=== PATIENT | female | born 1995 | race American Indian/Alaskan Native ===

== ENCOUNTER 2021-09-13 12:49 | Emergency (ER) | payer SELFPAY ==
[2021-09-13 13:04] VITALS: BP 105/66
--- NOTE | 2021-09-13 13:43 | Emergency Department Report ---
- General Chief complaint: Extremity Injury, Lower Stated complaint: FOOT PAIN Time Seen by Provider: 09/13/21 13:31 Source: patient Mode of arrival: Ambulatory Limitations: No Limitations - History of Present Illness Initial comments: Ms. Boland is a 25-year-old female that comes to the emergency room with foot pain. She thinks is related to the shoes that she is wearing to work. On exam she has a plantars wart to the bottom of her foot -: Gradual, days(s) Tetanus Up to Date: yes Severity scale (0 -10): 3 Quality: stabbing Consistency: constant Improves with: immobilization Worsens with: movement Context: none Associated symptoms: denies other symptoms - Related Data Previous Rx's Medication Instructions Recorded Last Taken Type Salicylic Acid [Compound W] 1 each TP DAILY #30 patch 09/13/21 Unknown Rx Allergies Allergy/AdvReac Type Severity Reaction Status Date / Time No Known Allergies Allergy Verified 09/13/21 13:04 Abscess Boil HPI - HPI Chief Complaint: Extremity Injury, Lower Stated Complaint: FOOT PAIN Time Seen by Provider: 09/13/21 13:31 Home Medications: Previous Rx's Medication Instructions Recorded Last Taken Type Salicylic Acid [Compound W] 1 each TP DAILY #30 patch 09/13/21 Unknown Rx Allergies/Adverse Reactions: Allergies Allergy/AdvReac Type Severity Reaction Status Date / Time No Known Allergies Allergy Verified 09/13/21 13:04 ED Review of Systems ROS: Stated complaint: FOOT PAIN Other details as noted in HPI Comment: All other systems reviewed and negative ED Past Medical Hx - Past Medical History Previous Medical History?: Yes Hx Congestive Heart Failure: Yes - Surgical History Past Surgical History?: No - Family History Family history: no significant - Social History Smoking Status: Never Smoker Substance Use Type: None - Medications Home Medications: Home Medications Medication Instructions Recorded Confirmed Last Taken Type Salicylic Acid [Compound W] 1 each TP DAILY #30 patch 09/13/21 Unknown Rx ED Physical Exam - General Limitations: No Limitations General appearance: alert, in no apparent distress - Head Head exam: Present: atraumatic, normocephalic - Eye Eye exam: Present: normal appearance - ENT ENT exam: Present: mucous membranes moist - Neck Neck exam: Present: normal inspection - Respiratory Respiratory exam: Present: normal lung sounds bilaterally. Absent: respiratory distress - Cardiovascular Cardiovascular Exam: Present: regular rate, normal rhythm. Absent: systolic murmur, diastolic murmur, rubs, gallop - GI/Abdominal GI/Abdominal exam: Present: soft, normal bowel sounds - Extremities Exam Extremities exam: Present: normal inspection - Back Exam Back exam: Present: normal inspection - Neurological Exam Neurological exam: Present: alert, oriented X3 - Psychiatric Psychiatric exam: Present: normal affect, normal mood - Skin Skin exam: Present: warm, dry, intact, normal color, other. Absent: rash ED Course Vital Signs 09/13/21 09/13/21 13:02 14:02 Temperature 98.5 F 98.5 F Pulse Rate 94 H 84 Respiratory 16 18 Rate Blood Pressure 105/66 O2 Sat by Pulse 100 99 Oximetry ED Medical Decision Making - Medical Decision Making Vital Signs 09/13/21 09/13/21 13:02 14:02 Temperature 98.5 F 98.5 F Pulse Rate 94 H 84 Respiratory 16 18 Rate Blood Pressure 105/66 O2 Sat by Pulse 100 99 Oximetry Left foot noted to have a plantars wart right at the area where patient is complaining of pain which is on the ball of her foot just under the third toe. There is no infection. There is no abscess. She has full range of motion of the toes and the ankle. She has no known trauma. She is neurovascularly in tact. Have educated the patient on care and management of a plantars wart. Patient being discharged home with discharge plan of care including diet, activity, medication and follow-up. She verbalizes understanding of plan of care - Differential Diagnosis Plantars wart versus bone spur Critical care attestation.: If time is entered above; I have spent that time in minutes in the direct care of this critically ill patient, excluding procedure time. ED Disposition Clinical Impression: Plantar wart Disposition: HOME / SELF CARE / HOMELESS Is pt being admited?: No Does the pt Need Aspirin: No Condition: Stable Instructions: Plantar Warts Additional Instructions: Medication as ordered today until the wart is gone these can be difficult to get rid of Follow-up with PCP I have given you referral below You may end up sending it to a sample stitcher to have it cut out Prescriptions: Salicylic Acid [Compound W] 1 each TP DAILY #30 patch Referrals: RICARDO GONSALVES MD [Staff Physician] - 3-5 Days Forms: Work/School Release Form(ED) Time of Disposition: 13:41
== END 2021-09-13 14:02 | disposition home or self-care (01) ==
LOC: ED 12:49
DX: B07.0 Plantar wart (principal)
CPT/HCPCS: 99282

== ENCOUNTER 2021-12-13 12:11 | Emergency (ER) | payer SELFPAY ==
[2021-12-13 12:41] VITALS: BP 113/74
[2021-12-13 13:53] LABS: Basophils # (Auto) 0.1 K/mm3 (0.0-0.1); Basophils % (Auto) 1.1 % (0.0-1.8); Eosinophils # (Auto) 0.1 K/mm3 (0.0-0.4); Eosinophils % (Auto) 1.8 % (0.0-4.3); Hematocrit 41.3 % (30.3-42.9); Hemoglobin 13.1 gm/dl (10.1-14.3); Lymphocytes # (Auto) 1.6 K/mm3 (1.2-5.4); Lymphocytes % (Auto) 29.4 % (13.4-35.0); Mean Corpuscular HGB Conc 32 % (30-34); Mean Corpuscular Volume 75 fl (79-97); Monocytes # (Auto) 0.3 K/mm3 (0.0-0.8); Monocytes % (Auto) 5.7 % (0.0-7.3); Platelet Count 213 K/mm3 (140-440); Red Blood Count 5.51 M/mm3 (3.65-5.03); Red Cell Distribution Width 13.5 % (13.2-15.2)
[2021-12-13 14:22] LABS: Alanine Aminotransferase 19 units/L (7-56); Albumin 5.4 g/dL (3.9-5); BUN/Creatinine Ratio 19; Blood Urea Nitrogen 15 mg/dL (7-17); Calcium 10.2 mg/dL (8.4-10.2); Hemolysis Index 38
--- NOTE | 2021-12-13 15:39 | Ultrasound Report ---
ULTRASOUND ABDOMEN, COMPLETE INDICATION: abd pain. COMPARISON: No relevant prior imaging study available. FINDINGS: Pancreas: The visualized pancreas is unremarkable. The tail is obscured.. Abdominal Aorta: No significant abnormality. IVC: No significant abnormality. Liver: The liver measures 15 cm in length. No significant abnormality. Normal hepatopedal blood flow in the main portal vein. Gallbladder: No significant abnormality. Bile ducts: No significant abnormality. Common bile duct measures 2 mm. Kidneys: Right: 10.6 cm in length. No significant abnormality. Left: 10.9 cm in length. No signif icant abnormality. Spleen: No significant abnormality. Free fluid: None. Additional Findings: None. IMPRESSION: No sonographic abnormality of the abdomen. Signer Name: Cristian Cohen Jr, MD Signed: 12/13/2021 3:34 PM Workstation Name: [id number]
--- NOTE | 2021-12-13 18:00 | Event Note ---
ED Screening Note Time: 12:37 ED Screening Note: pt reports generalized abd pain with n/v, back pain and fatigue that started this morning. pt denies fever, SOB, chest pain, sore throat. This initial assessment/diagnostic orders/clinical plan/treatment(s) is/are subject to change based on patients health status, clinical progression and re- assessment by fellow clinical providers in the ED. Further treatment and workup at subsequent clinical providers discretion. Patient/guardian urged not to elope from the ED as their condition may be serious if not clinically assessed and managed. Initial orders include: LABS UA TO FT FOR EVAL
[2021-12-13] MEDS ORDERED: diphenhydrAMINE 50 MG/ML VIAL IV ONE (19:29)
[2021-12-13] MEDS ORDERED: FAMOTIDINE 20 MG/2 ML INJ IV ONE (19:29)
[2021-12-13] MEDS ORDERED: SODIUM CHLORIDE 0.9% 1000 ML 1,000 ML IV ONE (19:29)
[2021-12-13] MEDS ORDERED: METOCLOPRAMIDE 10 MG/2 ML INJ IV ONE (19:29)
[2021-12-13] MEDS ORDERED: KETOROLAC 30 MG/1 ML INJ IV ONE (19:29)
[2021-12-13 19:40] LABS: Color,Urine Yellow (Yellow)
[2021-12-13 19:41] LABS: Bilirubin,Urine Negative (Negative); Blood,Urine Negative (Negative); Protein,Urine <15 mg/dL mg/dL (Negative)
[2021-12-13 19:42] LABS: HCG Qualitative,Urine Negative (Negative)
[2021-12-13 20:26] LABS: Bacteria,Urine 2+ /HPF (Negative); Hyaline Casts,Urine 1 /LPF; Mucus,Urine FEW /HPF
[2021-12-13] MEDS ORDERED: cefTRIAXone/NS 1 GM/50 ML 1 GM/50 ML BAG IV ONE (20:26)
--- NOTE | 2021-12-13 20:51 | Emergency Department Report ---
ED Abdominal Pain HPI - General Chief Complaint: Abdominal Pain Stated Complaint: STOMACH PAIN/NAUSEA Source: patient Mode of arrival: Ambulatory Limitations: No Limitations - History of Present Illness Initial Comments: Patient is a 26-year-old -[place] female with a history of hypertension and CHF and who is s/p AICD placement presents to the ED with complaint of acute onset persistent diffuse abdominal pain with intractable nausea and vomiting for the last 12 hours. Patient states that she has not been able to keep anything down because of intractable nausea and vomiting and that her abdominal pain and vomiting episodes have worsened in the last 6 hours. Patient states that the last meal she ate was a home-cooked meal 24 hours ago. Patient states that no o ne else at home has had similar symptoms. Patient denies chest pain, shortness of breath, dizziness, syncope, headache, lightheadedness, dysuria, urinary frequency and urgency, vaginal bleeding, vaginal discharge, hematemesis or hematochezia and diarrhea, fever and chills or cough. MD Complaint: abdominal pain (diffuse), other (nausea and vomiting) -: Gradual, hour(s) (12) Location: diffuse Radiation: none Migration to: no migration Severity: severe Severity scale (0 -10): 8 Quality: cramping, sharp Consistency: constant Improves With: nothing Worsens With: vomiting Context: possible food poisoning Associated Symptoms: denies other symptoms, nausea, vomiting, anorexia. denies: chills, constipation, dysuria, hematochezia, syncope, other - Related Data LMP Date: 11/30/21 Previous Rx's Medication Instructions Recorded Last Taken Type Salicylic Acid [Compound W] 1 each TP DAILY #30 patch 09/13/21 Unknown Rx Dicyclomine [Bentyl] 20 mg PO Q6H PRN #24 tablet 12/13/21 Unknown Rx Famotidine [Pepcid] 20 mg PO BID #40 tablet 12/13/21 Unknown Rx Ibuprofen [Motrin] 600 mg PO Q8H PRN #30 tablet 12/13/21 Unknown Rx Ondansetron [Zofran Odt] 4 mg PO Q8HR PRN #20 tab.rapdis 12/13/21 Unknown Rx cephALEXin [Keflex] 500 mg PO Q6HR #40 capsule 12/13/21 Unknown Rx Allergies Allergy/AdvReac Type Severity Reaction Status Date / Time No Known Allergies Allergy Verified 09/13/21 13:04 ED Review of Systems ROS: Stated complaint: STOMACH PAIN/NAUSEA Other details as noted in HPI Constitutional: denies: chills, fever Eyes: denies: eye pain, eye discharge, vision change ENT: denies: ear pain, throat pain Respiratory: denies: cough, shortness of breath, wheezing Cardiovascular: denies: chest pain, palpitations Endocrine: no symptoms reported Gastrointestinal: abdominal pain (Diffuse), nausea, vomiting. denies: diarrhea Genitourinary: denies: urgency, dysuria, discharge Musculoskeletal: denies: back pain, joint swelling, arthralgia Skin: denies: rash, lesions Neurological: denies: headache, weakness, paresthesias Psychiatric: denies: anxiety, depression Hematological/Lymphatic: denies: easy bleeding, easy bruising ED Past Medical Hx - Past Medical History Hx Hypertension: Yes Hx Congestive Heart Failure: Yes - Surgical History Additional Surgical History: ICD - Social History Smoking Status: Current Every Day Smoker Substance Use Type: Marijuana - Medications Home Medications: Home Medications Medication Instructions Recorded Confirmed Last Taken Type Salicylic Acid [Compound W] 1 each TP DAILY #30 patch 09/13/21 Unknown Rx Dicyclomine [Bentyl] 20 mg PO Q6H PRN #24 tablet 12/13/21 Unknown Rx Famotidine [Pepcid] 20 mg PO BID #40 tablet 12/13/21 Unknown Rx Ibuprofen [Motrin] 600 mg PO Q8H PRN #30 tablet 12/13/21 Unknown Rx Ondansetron [Zofran Odt] 4 mg PO Q8HR PRN #20 tab.rapdis 12/13/21 Unknown Rx cephALEXin [Keflex] 500 mg PO Q6HR #40 capsule 12/13/21 Unknown Rx ED Physical Exam - General Limitations: No Limitations General appearance: alert, in no apparent distress - Head Head exam: Present: atraumatic, normocephalic, normal inspection - Eye Eye exam: Present: normal appearance, PERRL, EOMI Pupils: Present: normal accommodation - ENT ENT exam: Present: normal exam, normal orophraynx, mucous membranes moist, TM's normal bilaterally, normal external ear exam - Neck Neck exam: Present: normal inspection, full ROM. Absent: tenderness - Respiratory Respiratory exam: Present: normal lung sounds bilaterally. Absent: respiratory distress, wheezes, rales, rhonchi, chest wall tenderness, accessory muscle use, decreased breath sounds, prolonged expiratory - Cardiovascular Cardiovascular Exam: Present: normal rhythm, tachycardia, normal heart sounds. Absent: systolic murmur, diastolic murmur, rubs, gallop - GI/Abdominal GI/Abdominal exam: Present: soft, tenderness (Diffusely tender), guarding, ramos l bowel sounds. Absent: rebound, hyperactive bowel sounds, hypoactive bowel sounds, organomegaly, mass, pulsatile mass, hernia - Bi-manual exam: Present: other (Pelvic exam deferred at this time) - Extremities Exam Extremities exam: Present: normal inspection, full ROM, normal capillary refill. Absent: tenderness, pedal edema, joint swelling, calf tenderness - Back Exam Back exam: Present: normal inspection, full ROM. Absent: tenderness, CVA tenderness (R), CVA tenderness (L), muscle spasm, paraspinal tenderness, vertebral tenderness - Neurological Exam Neurological exam: Present: alert, oriented X3, CN II-XII intact, normal gait, reflexes normal - Psychiatric Psychiatric exam: Present: normal affect, normal mood - Skin Skin exam: Present: warm, dry, intact, normal color. Absent: rash ED Course Vital Signs 12/13/21 12:37 Temperature 98.7 F Pulse Rate 103 H Respiratory 14 Rate Blood Pressure 113/74 O2 Sat by Pulse 98 Oximetry ED Medical Decision Making - Lab Data Result diagrams: 12/13/21 13:31 12/13/21 13:31 - Radiology Data Radiology results: report reviewed, image reviewed [facility] [address] [place] [address] Cat Scan Report Signed Patient: JASON ORTEGA MR#: [id number] : 1995 Acct:[id number] Age/Sex: 26 / F A DM Date: 12/13/21 Loc: ED Attending Dr: Ordering Physician: SARWAT DILLARD Date of Service: 12/13/21 Procedure(s): CT abdomen pelvis w con Accession Number(s): [id number] cc: SARWAT DILLARD CT ABDOMEN AND PELVIS WITH CONTRAST HISTORY: abdominal pain, N/V 70ml of [id number]. COMPARISON: None. TECHNIQUE: CT images of the abdomen and pelvis were obtained following administration of intravenous contrast. All CT scans at this location are performed using CT dose reduction for ALARA by means of automated exposure control. CONTRAST: 100 ml of intravenous contrast administered. FINDINGS: Lungs/bones: Lung bases are clear Abdomen/pelvis: There is fatty infiltration of the liver. Mild intrahepatic dilatation within the left hepatic lobe. Gallbladder is unremarkable. There may be cirrhotic configuration the right hepatic lobe. Adrenal glands, pancreas, spleen are normal. Bilateral kidneys are unremarkable. No hydronephrosis. Appendix visualized appears normal. No bowel obstruction is seen. Portal vein is patent. There is a small of free fluid in the pelvis. Uterus is heterogeneous and slightly prominent. Small adnexal cyst. Urinary bladder appears normal. No acute bone findings are seen. IMPRESSION: 1. The liver appears enlarged and heterogeneity. Cirrhosis cannot be completely excluded. There may be some minimal intrahepatic biliary ductal dilatation left hepatic lobe. Follow-up with GI and possible three-phase liver. 2. No focal inflammatory change in the right lower quadrant. Visualized appe ndix appears normal 3. Uterus is heterogeneous with fluid in the endometrium. There is free fluid in the pelvis with small adnexal cyst. Signer Name: Cuco Beck MD Signed: 12/13/2021 9:57 PM Workstation Name: [id number] Transcribed By: CW Dictated By: CALISTA BEKC MD Electronically Authenticated By: CALISTA BECK MD Signed Date/Time: 12/13/212156 DD/ 52 TD/TT: Print Cancel - Medical Decision Making This is a 26-year-old -[place] female with a history of hypertension and CHF and who is s/p AICD placement presents to the ED with complaint of acute onset persistent diffuse abdominal pain with intractable nausea and vomiting for the last 12 hours. Patient states that she has not been able to keep anything down because of intractable nausea and vomiting and that her abdominal pain and vomiting episodes have worsened in the last 6 hours. Patient states that the last meal she ate was a home-cooked meal 24 hours ago. Patient states that no one else at home has had similar symptoms. In the ED, patient is alert and oriented x3 and is not in any distress. Patient was treated for pain in the ED and also given antiemetics and antacids as well as normal saline 1 L IV bolus x1. Lab test results were reviewed and are all nonactionable except for urinalysis that showed significant urinary tract infection. Patient also received Rocephin 1 g IV x1. On reevaluation, patient's nausea and vomiting is well controlled medication. Patient's pain is also well controlled with medication. Abdomen pelvis CT scan with IV contrast showed no acute abnormalities except for the liver that appears enlarged and heterogeneity. Cirrhosis cannot be completely excluded. There may be some minimal intrahepatic biliary ductal dilatation left hepatic lobe. Follow-up with GI and possible three-phase liver. It also showed no focal inflammatory change in the right lower quadrant. Visualized appendix appears normal. In addition, the uterus is heterogeneous with fluid in the endometrium. There is free fluid in the pelvis with small adnexal cyst. Patient passed oral fluid challenge in the ED. Patient was discharged home on pain medications, antiemetics, antacids and antibiotic and was advised to follow-up with her primary care physician in 7 to 10 days for reevaluation or return to the ED immediately if symptoms get worse. - Differential Diagnosis GERD; gastroenteritis; UTI; ; appendicitis; pancreatitis; Critical care attestation.: If time is entered above; I have spent that time in minutes in the direct care of this critically ill patient, excluding procedure time. ED Disposition Clinical Impression: Abdominal pain, acute, generalized, Nausea and vomiting in adult patient, Acute urinary tract infection Disposition: 01 HOME / SELF CARE / HOMELESS Is pt being admited?: No Does the pt Need Aspirin: No Condition: Stable Instructions: Nausea and Vomiting, Adult, [id number], Urinary Tract Infection, Adult, [id number], Abdominal Pain, Adult, [id number], Abdominal Pain (ED) Additional Instructions: All lab test results were reviewed and are all nonactionable except for urinary tract infection in urinalysis. The abdomen pelvis CT scan is unremarkable, and the pelvic ultrasound showed no acute abnormalities. Therefore, maintain a clear liquid diet for 12 to 24 hours, drink plenty of fluids, take medication with fo od, drink plenty of fluids, follow-up with your primary care physician in 5 to 7 days for reevaluation. Return to the ED immediately if symptoms get worse. Prescriptions: Dicyclomine [Bentyl] 20 mg PO Q6H PRN #24 tablet PRN Reason: ABDOMINAL PAIN cephALEXin [Keflex] 500 mg PO Q6HR #40 capsule Ibuprofen [Motrin] 600 mg PO Q8H PRN #30 tablet PRN Reason: Pain Famotidine [Pepcid] 20 mg PO BID #40 tablet Ondansetron [Zofran Odt] 4 mg PO Q8HR PRN #20 tab.rapdis PRN Reason: Nausea Referrals: [facility] [Provider Group] - 7-10 days Forms: Work/School Release Form(ED) Time of Disposition: 22:31 Print Language: BELIZEAN
--- NOTE | 2021-12-13 22:02 | Cat Scan Report ---
CT ABDOMEN AND PELVIS WITH CONTRAST HISTORY: abdominal pain, N/V 70ml of [id number]. COMPARISON: None. TECHNIQUE: CT images of the abdomen and pelvis were obtained following administration of intravenous contrast. All CT scans at this location are performed using CT dose reduction for ALARA by means of automated exposure control. CONTRAST: 100 ml of intravenous contrast administered. FINDINGS: Lungs/bones: Lung bases are clear Abdomen/pelvis: There is fatty infiltration of the liver. Mild intrahepatic dilatation within the le ft hepatic lobe. Gallbladder is unremarkable. There may be cirrhotic configuration the right hepatic lobe. Adrenal glands, pancreas, spleen are normal. Bilateral kidneys are unremarkable. No hydronephro sis. Appendix visualized appears normal. No bowel obstruction is seen. Portal vein is patent. There i s a small of free fluid in the pelvis. Uterus is heterogeneous and slightly prominent. Small adnexal cyst. Urinary bladder appears normal. No acute bone findings are seen. IMPRESSION: 1. The liver appears enlarged and heterogeneity. Cirrhosis cannot be completely excluded. There may b e some minimal intrahepatic biliary ductal dilatation left hepatic lobe. Follow-up with GI and possib le three-phase liver. 2. No focal inflammatory change in the right lower quadrant. Visualized appendix appears normal 3. Uterus is heterogeneous with fluid in the endometrium. There is free fluid in the pelvis with smal l adnexal cyst. Signer Name: Cuco Clark MD Signed: 12/13/2021 9:57 PM Workstation Name: [id number]
== END 2021-12-13 22:46 | disposition home or self-care (01) ==
LOC: ED 12:11
DX: R11.2 Nausea with vomiting, unspecified (principal); R10.9 Unspecified abdominal pain; N39.0 Urinary tract infection, site not specified; F17.200 Nicotine dependence, unspecified, uncomplicated; F12.90 Cannabis use, unspecified, uncomplicated; I10 Essential (primary) hypertension
CPT/HCPCS: 36415; 74177; 76700; 80053; 81001; 81025; 83690; 85025; 96361; 96365; 96375; 99284; J0696; J1200; J1885; J2765; J3490; J7030; Q9967